=== PATIENT | female | born 1960 | race Caucasian/White ===

== ENCOUNTER 2017-06-18 07:38 | Day surgery (SDC) | payer BC ==
[~2017-06-18 07:38] MED LIST: Bupivacaine 0.5% 50 ML MDV ONE; Lidocaine 1% with EPINEPHrine 1:100,000 50 ML MDV ONE
[2017-06-18] MEDS ORDERED: Scopolamine 1.5 MG Transdermal Patch TOP SCH (08:30)
[2017-06-18] MEDS ORDERED: cefOXitin 2 GM in Premix Bag 1 BAG IV ONE (09:00)
[2017-06-18] MEDS ORDERED: Dextrose 5%-Lactated Ringers 1,000 ML IV SCH (09:00)
[2017-06-18] MEDS ORDERED: Midazolam 1 MG/ML 2 ML SDV ONE (09:06)
[2017-06-18] MEDS ORDERED: fentaNYL 250 MCG/5 ML SDV ONE (09:06)
[2017-06-18] MEDS ORDERED: Propofol 200 MG/20 ML SDV ONE (09:07)
[2017-06-18] MEDS ORDERED: Glycopyrrolate 0.2 MG/ML 5 ML MDV ONE (09:07)
[2017-06-18] MEDS ORDERED: Rocuronium 50 MG/5 ML Vial ONE (09:07)
[2017-06-18] MEDS ORDERED: Dexamethasone 4 MG/ML SDV ONE (09:07)
[2017-06-18] MEDS ORDERED: Neostigmine Methylsulfate 1 MG/ML 5 ML Syringe ONE (09:07)
[2017-06-18] MEDS ORDERED: Ondansetron 4 MG/2 ML SDV ONE (09:07)
[2017-06-18] MEDS ORDERED: Succinylcholine 200 MG/10 ML MDV ONE (09:46)
[2017-06-18] MEDS ORDERED: hydrOXYzine HCl 25 MG Tab PO PRN (10:54)
[2017-06-18] MEDS ORDERED: traMADol 50 MG Tab PO PRN (10:54)
[2017-06-18] MEDS ORDERED: Albuterol 8 GM Inhaler INH PRN (10:54)
[2017-06-18] MEDS ORDERED: Ondansetron 4 MG/2 ML SDV IVPUSH PRN (10:57)
[2017-06-18] MEDS ORDERED: hydrOXYzine HCl 100 MG/2 ML SDV IM PRN (10:57)
[2017-06-18] MEDS ORDERED: Docusate Sodium 100 MG Cap PO PRN (10:57)
[2017-06-18] MEDS ORDERED: fentaNYL 100 MCG/2 ML SDV IVPUSH PRN (10:57)
[2017-06-18] MEDS ORDERED: Lactated Ringers 1,000 ML IV SCH (11:00)
[2017-06-18] MEDS ORDERED: DULoxetine 30 MG Cap PO SCH (14:00)
--- NOTE | 2017-06-18 14:39 | PCM.DCSUM1 ---
Discharge Summary - Hospital Course Free Text/Narrative:: This 56 year old white female has complained for most of her adult life about right upper quadrant abdominal pain which radiates around to her back. It is occasionally associated with nausea and rarely vomiting. It has become much worse over the past year. It generally is post pradial, especially with greasy or fatty foods. She had an abdominal ultrasound which showed cholelithiasis with no ductal dilatation. Her LFT's are unremarkable. She was taken to the OR today for a laparoscopic cholecystectomy after receiving Mefoxin 2 grams IV preoperatively. She currently is eating well, ambulating well and wants to go home. She is discharged at this time in good condition. I will see her in follow up in about two weeks. Brief History: See above narrative. - Discharge Data Discharge Date: 06/18/17 Discharge Disposition: Home, Self-Care 01 Condition: Good - Discharge Diagnosis/Problem(s) (1) Cholelithiasis and cholecystitis without obstruction SNOMED Code(s): 28523268 ICD Code: K80.10 - CALCULUS OF GALLBLADDER W CHRONIC CHOLECYST W/O OBSTRUCTION Status: Acute Current Visit: Yes - Patient Summary/Data Operative Procedure(s) Performed: Laparoscopic cholecystectomy. Consults: Consultations 06/18/17 10:57 Respiratory Care Assess and Treatment [CONS] Routine Comment: Physician Instructions: Hospital Course: See above narrative. - Patient Instructions Diet: Usual Diet as Tolerated Activity: No Strenuous Activities (Two weeks.) Driving: Do Not Drive (For two weeks) Showering/Bathing: Shower in AM Notify Provider of: Fever, Increased Pain, Swelling and Redness, Drainage, Nausea and/or Vomiting - Discharge Plan Home Medications: Home Meds Albuterol Sulfate [Proair Hfa] 2 puff IH Q6HR PRN 06/15/17 [History] DULoxetine [Cymbalta] 60 mg PO DAILY 06/15/17 [History] Formoterol/Mometasone [Dulera 100 MCG/5 MCG] 2 puff IH BID 06/15/17 [History] Montelukast [Singulair] 10 mg PO BEDTIME 06/15/17 [History] hydrOXYzine HCl [hydrOXYzine] 25 mg PO Q8H PRN 06/15/17 [History] traMADol HCl [Tramadol HCl] 50 mg PO Q8HR PRN 06/15/17 [History] Referrals: Natanael Allen MD [Physician] - (See me in [facility] in about two weeks. ) - Discharge Summary/Plan Comment DC Time >30 min.: Yes Discharge Summary/Plan Comment: See above narrative. I will see her in about two weeks in follow up. - Patient Data Vitals - Most Recent: Last Vital Signs Temp 97.9 F 06/18/17 12:40 Pulse 90 06/18/17 13:40 Resp 16 06/18/17 13:40 BP 129/76 06/18/17 13:40 Pulse Ox 90 L 06/18/17 13:40 Weight - Most Recent: 215 lb I&O - Last 24 hours: Intake & Output 06/17/17 06/18/17 06/18/17 22:59 06:59 14:59 Intake Total 400 Output Total 375 Balance 25 NEIDA Results - Last 24 hrs: Microbiology 06/18/17 10:25 Gram Stain - Final Gallbladder Fluid - Bile Med Orders - Current: Current Medications Albuterol (Ventolin Hfa) 0 gm INH Q6H PRN PRN Reason: Shortness of Breath Docusate Sodium (Colace) 100 mg PO BID PRN PRN Reason: Constipation Duloxetine HCl (Cymbalta) 60 mg PO DAILY [facility] Last Admin: 06/18/17 13:46 Dose: 60 mg Fentanyl (Sublimaze) 50 mcg IVPUSH Q1H PRN PRN Reason: Pain (severe 7-10) Hydroxyzine HCl (Atarax) 25 mg PO Q8H PRN PRN Reason: Itching Hydroxyzine HCl (Vistaril) 50 mg IM Q4H PRN PRN Reason: Pain Dextrose/Lactated Ringer's (Dextrose 5%-Lactated Ringers) 1,000 mls @ 100 mls/ hr IV ASDIRECTED ANGELO Last Admin: 06/18/17 08:39 Dose: 100 mls/hr Lactated Ringer's (Ringers, Lactated) 1,000 mls @ 125 mls/hr IV ASDIRECTED ANGELO Mometasone Furoate/Formoterol Fumar (Dulera 100-5 Mcg) 2 puff IH BIDRT ANGELO Montelukast Sodium (Singulair) 10 mg PO BEDTIME ANGELO Ondansetron HCl (Zofran) 4 mg IVPUSH Q6H PRN PRN Reason: Nausea/Vomiting Scopolamine (Transderm-Scop) 1.5 mg TOP Q72H ANGELO Stop: 06/21/17 04:00 Last Admin: 06/18/17 08:34 Dose: 1.5 mg Tramadol HCl (Ultram) 50 mg PO Q8H PRN PRN Reason: Pain Last Admin: 06/18/17 13:45 Dose: 50 mg Discontinued Medications Bupivacaine HCl (Marcaine 0.5%) Confirm Administered Dose 50 ml .ROUTE .STK-MED ONE Stop: 06/18/17 06:50 Last Admin: 06/18/17 10:25 Dose: 20 ml Dexamethasone (Dexamethasone) Confirm Administered Dose 4 mg .ROUTE .STK-MED ONE Stop: 06/18/17 09:08 Fentanyl (Sublimaze) Confirm Administered Dose 250 mcg .ROUTE .STK-MED ONE Stop: 06/18/17 09:07 Glycopyrrolate (Robinul) Confirm Administered Dose 1 mg .ROUTE .STK-MED ONE Stop: 06/18/17 09:08 Cefoxitin Sodium 2 gm/ Premix 20 mls @ 400 mls/hr IV ONETIME ONE Stop: 06/18/17 09:02 Last Admin: 06/18/17 09:30 Dose: 400 mls/hr Lactated Ringer's (Ringers, Lactated) 1,000 ml IRR .STK-MED ONE Stop: 06/18/17 10:26 Last Admin: 06/18/17 10:25 Dose: 1,000 ml Lidocaine/Epinephrine (Xylocaine 1% With Epinephrine 1:100,000) Confirm Administered Dose 50 ml .ROUTE .STK-MED ONE Stop: 06/18/17 06:50 Last Admin: 06/18/17 10:25 Dose: 20 ml Midazolam HCl (Versed 1 Mg/Ml) Confirm Administered Dose 2 mg .ROUTE .STK-MED ONE Stop: 06/18/17 09:07 Neostigmine Methylsulfate (Neostigmine) Confirm Administered Dose 5 mg .ROUTE .STK-MED ONE Stop: 06/18/17 09:08 Ondansetron HCl (Zofran) Confirm Administered Dose 4 mg .ROUTE .STK-MED ONE Stop: 06/18/17 09:08 Propofol (Diprivan 20 Ml) Confirm Administered Dose 200 mg .ROUTE .STK-MED ONE Stop: 06/18/17 09:08 Rocuronium [place] (Zemuron) Confirm Administered Dose 50 mg .ROUTE .STK-MED ONE Stop: 06/18/17 09:08 Succinylcholine Chloride (Quelicin) Confirm Administered Dose 200 mg .ROUTE .STK -MED ONE Stop: 06/18/17 09:47 *Q Meaningful Use (DIS) - VTE *Q VTE Criteria *Q: - Stroke *Q Stroke Criteria *Q: - AMI *Q AMI Criteria *Q:
[2017-06-18] MEDS ORDERED: Montelukast 10 MG Tab PO SCH (21:00)
[2017-06-18] MEDS ORDERED: Formoterol/Mometasone 100-5 MCG 8.8 GM Inhaler IH SCH (21:00)
--- NOTE | 2017-06-19 08:17 | OR ---
DATE OF PROCEDURE: 06/18/2017 PREOPERATIVE DIAGNOSIS: Chronic cholecystitis with cholelithiasis. POSTOPERATIVE DIAGNOSIS: Chronic cholecystitis with cholelithiasis. PROCEDURE: Laparoscopic cholecystectomy. ANESTHESIA: General endotracheal. INDICATION: This 56-year-old white female, who says she has noted intermittent episodes of right upper quadrant abdominal pain that radiated around to her back for most of her adult life. Over the past year, it has become more severe, it is postprandial, greasy or fatty foods are especially bad. She had an abdominal ultrasound which showed cholelithiasis. There is no gallbladder wall thickening nor pericholecystic fluid. There is no ductal dilatation. Her liver functions are unremarkable. She is admitted for a laparoscopic cholecystectomy. Prior abdominal surgery consists of a hysterectomy. I counseled her for surgery including risks and alternatives, and she gave her informed consent to proceed. DESCRIPTION OF PROCEDURE: After adequate general endotracheal anesthesia was obtained, the patient's abdomen was prepped and draped in the usual sterile fashion. Time-out was held. An infraumbilical semicircular incision was made. Under direct vision, a 12 mm port was introduced into the abdomen using the Optiview technique. The camera was introduced into the abdomen and the abdomen was insufflated to a pressure of 20 mmHg with carbon dioxide. No evidence of intraabdominal injury was seen. Under direct vision, a 12 mm port was placed in the epigastrium and a 5 mm port was placed in the right lower quadrant. The gallbladder was grasped and elevated. There were multiple adhesions of omentum to it, consistent with chronic cholecystitis. These were dissected free. The cystic duct and arteries were dissected free. They were each clipped separately up on the gallbladder and separately three times proximally and divided between clips, this was all done well away from the common duct. The gallbladder was then dissected free from the gallbladder bed using Bovie electrocautery. The gallbladder was placed in a sample retrieval bag and elevated up through the anterior abdominal wall via the epigastric port site. It was cultured off the field and was noted to contain two large stones. The epigastric port was reintroduced back into the abdomen. The gallbladder bed was irrigated and suctioned dry, all looked well. The fascial closure device was used to place an 0 Vicryl stitch in the epigastric fascial defect. The infraumbilical port was removed with an interrupted stitch of 0 Vicryl used to close this fascial defect. We then evacuated as much CO2 from the abdomen as we could via the 5 mm port site in the right lower quadrant and then this port was removed. Lidocaine 1% with epinephrine in a 50:50 mix with 0.5% Marcaine was infiltrated about all incisions. 4-0 Vicryl using a subcuticular stitch was placed to approximate the skin of the incisions. Dermabond was applied. The anesthesia was reversed. She was extubated and brought to the recovery room in good condition. Natanael Allen MD /[id number]
== END 2017-06-18 18:05 | disposition home or self-care (01) ==
LOC: JP.SDS 07:38 → JP.MS 10:57 → JP.SDS 18:05
PROVIDERS: ATTEND Surgery
DX: K80.10 Calculus of gallbladder with chronic cholecystitis without obstruction (principal); I10 Essential (primary) hypertension; J44.9 Chronic obstructive pulmonary disease, unspecified; Z88.8 Allergy status to other drugs, medicaments and biological substances; Z79.899 Other long term (current) drug therapy; Z87.891 Personal history of nicotine dependence
CPT/HCPCS: 47562; 87070; 87075; 87205; A9270; J0330; J0694; J1100; J2250; J2405; J2704; J2710; J3010; J7042; J7120; 88304